=== PATIENT | female | born 1975 | race Caucasian/White ===

== ENCOUNTER 2016-05-10 12:32 | Emergency (ER) | payer OTHER ==
[~2016-05-10] VITALS: Ht 162.6 cm; Wt 95.7 kg
[2016-05-10 14:06] LABS: HEMATOCRIT 38.4 % (37.0-47.0); HEMOGLOBIN 12.7 gm/dL (12.0-15.0); MCH 30.8 pg (26.0-34.0); MCHC 33.1 % (28.0-37.0); MCV 92.8 fL (80.0-100.0); PLATELET COUNT 122 thou/uL (150-400); RBC 4.14 mil/uL (4.20-5.00); RDW 13.3 % (10.5-14.5); WBC 5.4 thou/uL (4.0-11.0)
[2016-05-10 14:12] LABS: MANUAL DIFF YES
[2016-05-10 14:17] LABS: ANION GAP 5 mmol/L (7-16); BUN 12 mg/dL (7-18); CALCIUM 8.7 mg/dL (8.5-10.1); CHLORIDE 106 mmol/L (98-107); CO2 33 mmol/L (21-32); CREATININE 0.8 mg/dL (0.6-1.3); GLUCOSE 92 mg/dL (70-99); POTASSIUM 4.3 mmol/L (3.5-5.1); SODIUM 144 mmol/L (136-145)
[2016-05-10 14:24] LABS: ACETAMINOPHEN < 2 ug/mL (10-30); SALICYLATE < 2.8 mg/dL (2.8-20.0)
[2016-05-10] MEDS ORDERED: ALLOPURINOL 30300 M2 PO (14:26)
[2016-05-10 14:27] LABS: AMP/METHAMP Negative (Negative); BARBITURATES Negative (Negative); BENZODIAZEPINES Negative (Negative); COCAINE Negative (Negative); METHADONE Negative (Negative); OPIATES POSITIVE (Negative); PCP Negative (Negative); THC Negative (Negative)
[2016-05-10] MEDS ORDERED: ASPIRIN EC81 M1 PO (14:27)
[2016-05-10] MEDS ORDERED: TENORMIN25 MG PO (14:27)
[2016-05-10] MEDS ORDERED: LIPITOR40 MG PO (14:27)
[2016-05-10 14:28] LABS: ABSOLUTE NEUTROPHILS 2.3 thou/uL (1.4-8.2); TOTAL CELL COUNT 100
[2016-05-10] MEDS ORDERED: KLONOPIN0.5 MG PO (14:28)
[2016-05-10] MEDS ORDERED: CETIRIZINE HCL10 MG PO (14:28)
[2016-05-10] MEDS ORDERED: DEPAKOTE ER500 MG PO (14:28)
[2016-05-10] MEDS ORDERED: NEURONTIN600 MG PO (14:30)
[2016-05-10] MEDS ORDERED: CYMBALTA60 MG PO (14:33)
[2016-05-10] MEDS ORDERED: IMDUR 60 MG TAB60 M1 PO (14:33)
[2016-05-10] MEDS ORDERED: COZAAR 25 MG TA25 M2 PO ×2 (14:33→14:39)
[2016-05-10] MEDS ORDERED: MAGNESIUM OXID400 MG PO ×2 (14:39→14:40)
[2016-05-10] MEDS ORDERED: SINGULAIR 10 MG10 MG PO (14:41)
[2016-05-10] MEDS ORDERED: NITROGLYCERIN0.4 MG SUBLING (14:42)
[2016-05-10] MEDS ORDERED: POTASSIUM CITRATE PO (14:50)
[2016-05-10] MEDS ORDERED: ROPINIROLE HCL0.5 MG PO (14:51)
[2016-05-10] MEDS ORDERED: VESICARE10 M1 PO (14:51)
[2016-05-10] MEDS ORDERED: VITAMIN D 5050000 I1 PO (14:52)
[2016-05-10] MEDS ORDERED: VOL-PLUS TABLE1 EAC1 PO (14:53)
[2016-05-10] MEDS ORDERED: AMBIEN 5 MG TABL5 M1 PO (14:54)
[2016-05-10] MEDS ORDERED: BUTRANS1 EAC1 TD (14:55)
[2016-05-10] MEDS ORDERED: MICONAZOLE 745 GM VG (14:57)
[2016-05-10] MEDS ORDERED: RESTASIS1 EACH OPHTHALMIC (14:58)
[2016-05-10] MEDS ORDERED: SYSTANE NIGHTT3.5 GM OP (14:58)
[2016-05-10] MEDS ORDERED: TRIAMCINOLONE A80 G2 TOP (14:59)
[2016-05-10 20:13] VITALS: BP 103/61
== END 2016-05-10 20:15 ==
LOC: ER 12:32
PROVIDERS: Physician Assistant
DX: R45.851 Suicidal ideations (principal); F31.9 Bipolar disorder, unspecified; F60.3 Borderline personality disorder; F32.9 Major depressive disorder, single episode, unspecified; Z88.2 Allergy status to sulfonamides; Z88.1 Allergy status to other antibiotic agents; Z88.8 Allergy status to other drugs, medicaments and biological substances; Z88.5 Allergy status to narcotic agent